=== PATIENT | male | born 1950 | race Caucasian/White ===

== ENCOUNTER → 2016-09-06 | Outpatient (CLI) | payer MEDICARE, OTHER ==
--- NOTE | 2016-09-06 13:19 | US ---
EXAM DESCRIPTION: US LOWER EXTREMITY VEINS LIMITED/UNILATERAL/FOLLOW UP CLINICAL HISTORY: 66 y/o M, LOCALIZED EDEMA COMPARISON: None. FINDINGS: Grayscale and color Doppler imaging of the left lower extremity was performed. Cornetist grayscale, spectral Doppler and color Doppler images of the venous structures within the left lower extremity were saved to the patient's medical record. Normal compressibility and color Doppler flow within the venous structures of the left lower extremity. IMPRESSION: Negative for DVT within the left lower extremity. Electronically signed by: Ambrosio Estevez MD 09/06/2016 13:16
== END ==
LOC: RAD 10:15
PROVIDERS: ATTEND Family Medicine
DX: R60.0 Localized edema (principal)

== ENCOUNTER → 2016-10-10 | Outpatient (CLI) | payer MEDICARE, OTHER | END | disposition home or self-care (01) | LOC: GMAH 14:43 | PROVIDERS: ATTEND Family Medicine | DX: D64.9 Anemia, unspecified (principal); E53.8 Deficiency of other specified B group vitamins ==

== ENCOUNTER 2016-11-16 15:13 | Outpatient (CLI) | payer MEDICARE, OTHER ==
[2016-11-17] MEDS ORDERED: ACETAMINOPHEN 325 MG TAB PO ONE (09:40)
[2016-11-17] MEDS ORDERED: SODIUM CHLORIDE 0.9% 250ML 250 ML IVS PRN (09:40)
[2016-11-17] MEDS ORDERED: diphenhydrAMINE HCL 50 MG/ML VIAL IV ONE (09:40)
[2016-11-17 18:56] VITALS: BP 126/67; TEMP 98.7; O2SAT 100
== END 2016-11-17 18:56 | disposition home or self-care (01) ==
LOC: TXRM 15:13
PROVIDERS: ATTEND Family Medicine
DX: D64.9 Anemia, unspecified (principal)
CPT/HCPCS: 36415; 86850; 86900; 86901; 86922; P9016

== ENCOUNTER 2016-12-04 16:17 | Outpatient (CLI) | payer MEDICARE, OTHER ==
[2016-12-05] MEDS ORDERED: SODIUM CHLORIDE 0.9% 500ML 500 ML IVS ONE (06:20)
[2016-12-05] MEDS: ACETAMINOPHEN 325 MG TAB PO ONE ×2 (08:50)
[2016-12-05] MEDS: diphenhydrAMINE HCL 50 MG/ML VIAL IV ONE ×2 (08:51)
[2016-12-05 13:53] VITALS: BP 133/74; TEMP 98.2; O2SAT 100
== END 2016-12-05 13:30 | disposition home or self-care (01) ==
LOC: AMB 16:17 → TXRM 12-05 13:30
PROVIDERS: ATTEND Family Medicine
PROC: 30233N1 Transfusion of Nonautologous Red Blood Cells into Peripheral Vein, Percutaneous Approach (ICD-10-PCS; principal; 2016-12-05 08:00)
DX: D64.9 Anemia, unspecified (principal)
CPT/HCPCS: 36415; 36430; 86850; 86900; 86901; 86922; G0463; J1200; J7040; P9016

== ENCOUNTER 2017-01-11 14:34 | Emergency (ER) | payer MEDICARE, OTHER ==
[2017-01-11 15:03] VITALS: TEMP 98; O2SAT 100
--- NOTE | 2017-01-11 16:09 | ED.PDOC ---
History of Present Illness - General Chief Complaint: General Stated Complaint: abnormal lab Time Seen by Provider: 01/11/17 16:02 - History of Present Illness Initial Comments: THIS PATIENT COMES FROM DR. ROWLEY OFFICE. EVIDENCTLY HIS HB WAS AROUND 6 TODAY. HE ALSO C/O A SEVERE CONNOR, FRONTAL AREA THAT HAS BEEN OCCURRING DAILY IN THE AM,S FOR SEVERAL WEEKS NOW. Allergies/Adverse Reactions: Allergies Levofloxacin [From Levaquin] Allergy (Verified 03/05/15 13:03) Home Medications: Ambulatory Orders Digoxin 0.25 mg PO DAILY@1200 08/05/14 Labetalol HCl 100 mg PO DAILY 08/05/14 Lisinopril 20 mg PO DAILY 08/05/14 Lorazepam 1 mg PO BID 08/05/14 Sucralfate Tab [Carafate Tab] 1 gm PO QID #100 tab 08/06/14 Albuterol Inhaler [Ventolin Hfa Inhaler] 1 puff INH Q3-4H PRN #1 inh 03/05/15 Amoxicillin & Pot Clavulanate [Augmentin] 875 mg PO BID #20 tab 03/05/15 Lansoprazole [Prevacid] 30 mg PO DAILY 03/05/15 Pantoprazole Tablet [Protonix] 40 mg PO DAILY 03/05/15 Warfarin Sodium 2 mg PO DAILY 03/05/15 predniSONE 40 mg PO DAILY #8 tab 03/05/15 Review of Systems - Review of Systems Constitutional: States: weakness EENTM: States: blurred vision Respiratory: States: no symptoms reported Cardiology: States: no symptoms reported Gastrointestinal/Abdominal: States: no symptoms reported Genitourinary: States: no symptoms reported Musculoskeletal: States: no symptoms reported Skin: States: no symptoms reported Neurological: States: headache. Denies: numbness Endocrine: States: no symptoms reported Hematologic/Lymphatic: States: no symptoms reported Past Medical History (General) - Patient Medical History Hx Seizures: No Hx Stroke: No Hx Dementia: No Hx Asthma: No Hx of COPD: No Hx Cardiac Disorders: Yes - Irreg heart beat, CAD, BYPASS 21 YRS AGO Hx Congestive Heart Failure: No Hx Pacemaker: No Hx Hypertension: Yes Hx Thyroid Disease: No Hx Diabetes: No Hx Gastroesophageal Reflux: No Hx Renal Disease: No Hx Cancer: No Hx of HIV: No Hx Hepatitis C: No Hx MRSA: No Surgical History: coronary bypass surgery, tonsillectomy - Vaccination History Hx Tetanus, Diphtheria Vaccination: Yes Hx Influenza Vaccination: Yes Hx Pneumococcal Vaccination: No - Social History Hx Tobacco Use: Yes Hx Alcohol Use: Yes - 6 pack per day Hx Substance Use: No Hx Substance Use Treatment: No Hx Depression: No Hx Physical Abuse: No Hx Emotional Abuse: No Hx Suspected Abuse: No - Female History Patient is a Female of Child Bearing Age (10 -59 yrs old): No Family Medical History - Family History Father Family History: Unknown Living Status: Age at (years of age): 76 Cause of : [place] Hx Cardiac Disease: Yes Mother Living Status: Cause of : [place] Hx Cardiac Disease: Yes Physical Exam - Physical Exam General Appearance: Alert, Anxious, Well Developed Eye Exam: bilateral normal Ears, Nose, Throat: hearing grossly normal, normal ENT inspection, normal pharynx Neck: non-tender, full range of motion, supple, normal inspection Respiratory: chest non-tender, lungs clear, normal breath sounds, no respiratory distress, no accessory muscle use Cardiovascular/Chest: normal peripheral pulses, other - IRREGULAR RATE - HAS AF Peripheral Pulses: radial,right: 2+, radial,left: 2+ Gastrointestinal/Abdominal: normal bowel sounds, non tender, soft, no organomegaly, no pulsatile mass Progress - Results/Orders Results/Orders: THE LAB IS BACK AND THE PATIENT'S HB IS 6.2. ATTEMPTED TO TYPE , CROSS AND TRANSFUSE THE PATIENT BUT THE PATIENT HAS A PROTEIN IN HIS BLOOD. I HAVE SPOKEN TO DR. PORTILLO FROM [facility] AND HE HAS ACCEPTED THE PATIENT FOR TRANSFER TO A HIGHER LEVEL OF CARE. Departure - Departure Clinical Impression: Upper GI bleeding Anemia Qualifiers: Iron deficiency anemia type: chronic blood loss Time of Disposition: 17:52 - DIFF. DX: ALCOHOLIC GASTRITIS Disposition: Transfer to Hospital Condition: Good Departure Forms: ED Discharge - Pt. Copy, Patient Portal Self Enrollment Referrals: Kei Solano MD [Primary Care Provider] - 1-2 Weeks Home Medications: Ambulatory Orders Digoxin 0.25 mg PO DAILY@1200 08/05/14 Labetalol HCl 100 mg PO DAILY 08/05/14 Lisinopril 20 mg PO DAILY 08/05/14 Lorazepam 1 mg PO BID 08/05/14 Sucralfate Tab [Carafate Tab] 1 gm PO QID #100 tab 08/06/14 Albuterol Inhaler [Ventolin Hfa Inhaler] 1 puff INH Q3-4H PRN #1 inh 03/05/15 Amoxicillin & Pot Clavulanate [Augmentin] 875 mg PO BID #20 tab 03/05/15 Lansoprazole [Prevacid] 30 mg PO DAILY 03/05/15 Pantoprazole Tablet [Protonix] 40 mg PO DAILY 03/05/15 Warfarin Sodium 2 mg PO DAILY 03/05/15 predniSONE 40 mg PO DAILY #8 tab 03/05/15
--- NOTE | 2017-01-11 16:14 | CT ---
EXAM DESCRIPTION: Head CLINICAL HISTORY: headaches COMPARISON: None available TECHNIQUE: Non contrast cranial CT This exam was performed according to our departmental dose-optimization program, which includes automated exposure control, adjustment of the mA and/or kV according to patient size and/or use of iterative reconstruction technique. FINDINGS: Ventricles and sulci are unremarkable. There is no hemorrhage or mass. There are no white matter abnormalities detected. The calvarium is unremarkable. Mild patchy sinus disease involving the right maxillary and mid right ethmoid sinus and minimally the left ethmoid sinus is noted without air-fluid level. The petrous ridges are normally pneumatized. IMPRESSION: 1. Mild patchy mucosal thickening right maxillary and both ethmoid sinuses consistent with mild sinusitis. 2. Normal CT of the head intracranially without hemorrhage or mass or abnormality. Electronically signed by: Domenico Ortiz MD 01/11/2017 4:14 PM CDT
[2017-01-11 18:18] VITALS: BP 138/67
== END 2017-01-11 18:16 | disposition short-term general hospital (02) ==
LOC: ER 14:34
DX: K92.2 Gastrointestinal hemorrhage, unspecified (principal); D50.0 Iron deficiency anemia secondary to blood loss (chronic); I49.9 Cardiac arrhythmia, unspecified; Z95.1 Presence of aortocoronary bypass graft; I10 Essential (primary) hypertension; Z87.891 Personal history of nicotine dependence; Z88.8 Allergy status to other drugs, medicaments and biological substances; Z79.899 Other long term (current) drug therapy; Z79.01 Long term (current) use of anticoagulants

== ENCOUNTER → 2017-08-30 | Outpatient (CLI) | payer MEDICARE, OTHER | LOC: GMAH 14:15 | PROVIDERS: ATTEND Family Medicine | DX: M10.9 Gout, unspecified (principal) ==

== ENCOUNTER → 2017-11-23 | Outpatient (CLI) | payer MEDICARE, OTHER | LOC: GT 07:32 | PROVIDERS: ATTEND Family Medicine | DX: I48.91 Unspecified atrial fibrillation (principal); D53.9 Nutritional anemia, unspecified | CPT/HCPCS: 36415; 80162; 85025; 85610; P9603 ==

== ENCOUNTER → 2017-11-30 | Outpatient (CLI) | payer MEDICARE, OTHER | LOC: GT 09:39 | PROVIDERS: ATTEND Family Medicine | DX: I48.91 Unspecified atrial fibrillation (principal); D53.9 Nutritional anemia, unspecified | CPT/HCPCS: 36415; 85610; P9603 ==

== ENCOUNTER 2017-12-06 11:07 | Emergency (ER) | payer MEDICARE, OTHER ==
[2017-12-06 11:35] VITALS: TEMP 97.1
--- NOTE | 2017-12-06 11:49 | ED.PDOC ---
History of Present Illness - General Chief Complaint: Neuro Symptoms/Deficits Stated Complaint: AMS,foot infection Time Seen by Provider: 12/06/17 11:43 Source: patient, family - History of Present Illness Initial Comments: HE LIVES AT THE [facility] FOR THE PAST TWO WEEKS. HE IS BROUGHT BY THE FOR ALTERED MENTAL STATUS. THE SAYS THAT SINCE HE GOT TO THE ED HE HAS PERKED UP AND IS MUCH MORE ALERT. HE WAS AT [facility] FOR AN ACUTE CRITICAL ISCHEMIC FOOT IN MID NOVEMBER AND A GANGRENOUS RIGHT THIRD TOE. I UNDERSTAND HE UNDERWENT A CT ANGIO WITH A RUN-OFF AND THEN WAS RE- VASCULARIZED BY ONE OF THE [employer]PA[employer] SUPERVISOR. HIS FOOT IS IMPROVED BUT THE RIGHT THIRD DIGIT HAS TURNED MORE GANGRENOUS. Timing/Duration: 24 hours Improving Factors: nothing Worsening Factors: nothing Associated Symptoms: denies symptoms Allergies/Adverse Reactions: Allergies Levofloxacin [From Levaquin] Allergy (Verified 03/05/15 13:03) Home Medications: Ambulatory Orders Digoxin 0.25 mg PO DAILY@1200 08/05/14 Lisinopril 20 mg PO DAILY 08/05/14 Lorazepam 1 mg PO BID 08/05/14 Pantoprazole Tablet [Protonix] 40 mg PO DAILY 03/05/15 Warfarin Sodium 2 mg PO DAILY 03/05/15 Aspirin [Aspirin Regimen Low Dose/] 81 mg PO DAILY 12/06/17 Atorvastatin Calcium [Lipitor] 80 mg PO BEDTIME 12/06/17 Chlorthalidone 12.5 mg PO DAILY 12/06/17 Folic Acid 1 mg PO DAILY 12/06/17 Metoprolol Tartrate 25 mg PO BID 12/06/17 Multiple Vitamins W/ Minerals [Multivitamin Adults] 1 tab PO DAILY 12/06/17 Nicotine Patch 21 mg [Habitrol Patch 21mg] 21 mg TOP DAILY 12/06/17 Sennosides [Senna] 8.6 mg PO BID 12/06/17 Thiamine HCl 100 mg PO DAILY 12/06/17 amLODIPine BESYLATE [Norvasc] 5 mg PO BEDTIME 12/06/17 Review of Systems - Review of Systems Constitutional: States: weakness EENTM: States: no symptoms reported Respiratory: States: no symptoms reported Cardiology: States: other - PERIPHERAL VASCULAR DISEASE Gastrointestinal/Abdominal: States: no symptoms reported Genitourinary: States: no symptoms reported Musculoskeletal: States: no symptoms reported Skin: States: other - GANGRENOUS RIGHT THIRD TOE Neurological: States: anxiety, depressed, emotional problems Endocrine: States: no symptoms reported Hematologic/Lymphatic: States: no symptoms reported All other Systems: Reviewed and Negative, No Change from Baseline Past Medical History (General) - Patient Medical History Hx Seizures: No Hx Stroke: No Hx Dementia: No Hx Asthma: No Hx of COPD: No Hx Cardiac Disorders: Yes - Atrial fib,CAD Hx Congestive Heart Failure: Yes Hx Pacemaker: No Hx Hypertension: Yes Hx Thyroid Disease: No Hx Diabetes: No Hx Gastroesophageal Reflux: No Hx Renal Disease: No Hx Cancer: No Hx of HIV: No Hx Hepatitis C: No Hx MRSA: No Surgical History: coronary bypass surgery, other - RECENT REVASCULAIZATION RIGHT LEG - Vaccination History Hx Tetanus, Diphtheria Vaccination: Yes Hx Influenza Vaccination: Yes Hx Pneumococcal Vaccination: Yes - Social History Hx Tobacco Use: Yes Hx Alcohol Use: Yes Hx Substance Use: No Hx Substance Use Treatment: No Hx Depression: No Hx Physical Abuse: No Hx Emotional Abuse: No Hx Suspected Abuse: No - Activities of Daily Living Residential/Assisted Living (if applicable):: [facility] Family Medical History - Family History Father Family History: Unknown Living Status: Age at (years of age): 76 Cause of : [place] Hx Cardiac Disease: Yes Mother Living Status: Cause of : [place] Hx Cardiac Disease: Yes Physical Exam - Physical Exam General Appearance: Alert, Well Developed, Well Groomed Eye Exam: bilateral normal Ears, Nose, Throat: hearing grossly normal, normal ENT inspection Neck: non-tender, full range of motion, supple, normal inspection Respiratory: chest non-tender, lungs clear, normal breath sounds, no respiratory distress, no accessory muscle use Cardiovascular/Chest: normal peripheral pulses, regular rate, rhythm, no edema, no gallop, no JVD, no murmur Peripheral Pulses: radial,right: 2+, radial,left: 2+, dorsalis pedis,right: 1+, dorsalis pedis,left: 2+ Gastrointestinal/Abdominal: normal bowel sounds, non tender, soft, no organomegaly, no pulsatile mass Rectal Exam: normal rectal tone, black stool, heme positive stool, other - NO MASSES Back Exam: normal inspection, no CVA tenderness, no vertebral tenderness Neurologic: no motor/sensory deficits, alert, normal mood/affect, oriented x 3 Skin Exam: normal color, warm/dry Lymphatic: no adenopathy Progress - Results/Orders Results/Orders: THE LAB IS REPORTED: H/H 7.08/26 FECAL OCCULT BLOOD: POSITIVE INR: 2.2 DIG LEVEL: 4.5 CMP: CREAT 1.9, BUN 35 UA $ UDS ARE STILL PENDING EKG: HR OF 65, QRS OF 142, QTC OF 453, AXES OF 60, IMPRESSION: ATRIAL FIBRILLATION, DIG EFFECT 1350: i have discussed the findings with the and on her recommendation i have also discussed the case with dr. shetty. AFTER OUR CONVERSATION IT WAS DECIDED THAT THE PATIENT WILL BE DISCHARGED HOME AND TO KEEP THE APPOINTMENT WITH DR. HOLMAN TODAY. DR. SHETTY WILL TAKE IT FROM THERE. Departure - Departure Clinical Impression: Gangrenous toe, Peripheral vascular disease Anemia Qualifiers: Anemia type: unspecified type Qualified Code(s): D64.9 - Anemia, unspecified Digitalis toxicity Qualifiers: Encounter type: initial encounter Injury intent: undetermined intent Qualified Code(s): T46.0X4A - Poisoning by cardiac-stimulant glycosides and drugs of similar action, undetermined, initial encounter Disposition: Discharge to Home or Self Care Departure Forms: ED Discharge - Pt. Copy, Patient Portal Self Enrollment Diet: resume usual diet Activity: increase activity as tolerated Referrals: Kei Shetty MD [Primary Care Provider] - 1-2 Weeks Home Medications: Ambulatory Orders Digoxin 0.25 mg PO DAILY@1200 08/05/14 Lisinopril 20 mg PO DAILY 08/05/14 Lorazepam 1 mg PO BID 08/05/14 Pantoprazole Tablet [Protonix] 40 mg PO DAILY 03/05/15 Warfarin Sodium 2 mg PO DAILY 03/05/15 Aspirin [Aspirin Regimen Low Dose/] 81 mg PO DAILY 12/06/17 Atorvastatin Calcium [Lipitor] 80 mg PO BEDTIME 12/06/17 Chlorthalidone 12.5 mg PO DAILY 12/06/17 Folic Acid 1 mg PO DAILY 12/06/17 Metoprolol Tartrate 25 mg PO BID 12/06/17 Multiple Vitamins W/ Minerals [Multivitamin Adults] 1 tab PO DAILY 12/06/17 Nicotine Patch 21 mg [Habitrol Patch 21mg] 21 mg TOP DAILY 12/06/17 Sennosides [Senna] 8.6 mg PO BID 12/06/17 Thiamine HCl 100 mg PO DAILY 12/06/17 amLODIPine BESYLATE [Norvasc] 5 mg PO BEDTIME 12/06/17 Decision To Admit - Decistion To Admit Decision to Admit Date: 12/06/17 Decision to Admit Time: 13:22 - NO BEDS AVAILABLE AT [facility].
[2017-12-06 13:39] VITALS: O2SAT 99
[2017-12-06 14:09] VITALS: BP 101/60
== END 2017-12-06 14:09 | disposition home or self-care (01) ==
LOC: ER 11:07
DX: I96 Gangrene, not elsewhere classified (principal); I73.9 Peripheral vascular disease, unspecified; T46.0X4A Poisoning by cardiac-stimulant glycosides and drugs of similar action, undetermined, initial encounter; D64.9 Anemia, unspecified; I48.91 Unspecified atrial fibrillation; I25.10 Atherosclerotic heart disease of native coronary artery without angina pectoris; I10 Essential (primary) hypertension; Z79.01 Long term (current) use of anticoagulants; Z79.82 Long term (current) use of aspirin; Z87.891 Personal history of nicotine dependence

== ENCOUNTER 2017-12-07 08:39 | Day surgery (SDC) | payer MEDICARE, OTHER ==
[2017-12-07] MEDS ORDERED: SODIUM CHLORIDE 0.9% 500ML 500 ML ONE (11:02)
[2017-12-07] MEDS ORDERED: diphenhydrAMINE HCL 50 MG/ML VIAL ONE (11:41)
[2017-12-07] MEDS ORDERED: ACETAMINOPHEN 325 MG TAB ONE (11:41)
[2017-12-07 15:56] VITALS: O2SAT 100
[2017-12-07 17:00] VITALS: BP 105/61; TEMP 97.9
== END 2017-12-07 17:00 ==
LOC: AMB 08:39
PROVIDERS: ATTEND Family Medicine
DX: D64.9 Anemia, unspecified (principal)
CPT/HCPCS: 36415; 36430; 80048; 80162; 83735; 86850; 86900; 86901; 86922; J1200; J7040; P9016

== ENCOUNTER 2017-12-09 11:41 | Inpatient (IN) | payer MEDICARE, OTHER ==
--- NOTE | 2017-12-09 12:17 | ED.PDOC ---
History of Present Illness - General Chief Complaint: Neuro Symptoms/Deficits Stated Complaint: altered mental status Time Seen by Provider: 12/09/17 12:00 Source: patient, EMS Exam Limitations: other - dementia - History of Present Illness Initial Comments: Patient presents from the intermediate. EMS reports that the intermediate said he was "altered". The patient is unable to give any history due to dementia. He recently was seen by Dr. Hager because he has a necrotic toe on his right foot. Patient is a diabetic. No other history is available. Timing/Duration: unsure Severity: moderate Improving Factors: nothing Worsening Factors: nothing Associated Symptoms: denies symptoms Allergies/Adverse Reactions: Allergies Levofloxacin [From Levaquin] Allergy (Verified 03/05/15 13:03) Home Medications: Ambulatory Orders Digoxin 0.25 mg PO DAILY@1200 08/05/14 Lisinopril 20 mg PO DAILY 08/05/14 Lorazepam 1 mg PO BID 08/05/14 Pantoprazole Tablet [Protonix] 40 mg PO DAILY 03/05/15 Warfarin Sodium 2 mg PO DAILY 03/05/15 Aspirin [Aspirin Regimen Low Dose/] 81 mg PO DAILY 12/06/17 Atorvastatin Calcium [Lipitor] 80 mg PO BEDTIME 12/06/17 Chlorthalidone 12.5 mg PO DAILY 12/06/17 Folic Acid 1 mg PO DAILY 12/06/17 Metoprolol Tartrate 25 mg PO BID 12/06/17 Multiple Vitamins W/ Minerals [Multivitamin Adults] 1 tab PO DAILY 12/06/17 Nicotine Patch 21 mg [Habitrol Patch 21mg] 21 mg TOP DAILY 12/06/17 Sennosides [Senna] 8.6 mg PO BID 12/06/17 Thiamine HCl 100 mg PO DAILY 12/06/17 amLODIPine BESYLATE [Norvasc] 5 mg PO BEDTIME 12/06/17 Review of Systems - Review of Systems Unable to Obtain Due To: dementia Past Medical History (General) - Patient Medical History Hx Seizures: No Hx Stroke: No Hx Dementia: No Hx Asthma: No Hx of COPD: No Hx Cardiac Disorders: Yes - Atrial fib,Ischemic heart disease Hx Congestive Heart Failure: Yes Hx Pacemaker: No Hx Hypertension: Yes Hx Thyroid Disease: No Hx Diabetes: No Hx Gastroesophageal Reflux: Yes Hx Renal Disease: No Hx Cancer: No Hx of HIV: No Hx Hepatitis C: No Hx MRSA: No - Vaccination History Hx Tetanus, Diphtheria Vaccination: Yes Hx Influenza Vaccination: Yes Hx Pneumococcal Vaccination: Yes - Social History Hx Tobacco Use: Yes Hx Alcohol Use: Yes Hx Substance Use: No Hx Substance Use Treatment: No Hx Depression: No Hx Physical Abuse: No Hx Emotional Abuse: No Hx Suspected Abuse: No - Activities of Daily Living [facility] Family Medical History - Family History Father Family History: Unknown Living Status: Age at (years of age): 76 Cause of : [place] Hx Cardiac Disease: Yes Mother Living Status: Cause of : [place] Hx Cardiac Disease: Yes Physical Exam - Physical Exam General Appearance: Alert Eye Exam: bilateral normal Ears, Nose, Throat: normal ENT inspection Neck: non-tender, full range of motion, supple Respiratory: chest non-tender, lungs clear, normal breath sounds Cardiovascular/Chest: normal peripheral pulses, regular rate, rhythm, no edema Gastrointestinal/Abdominal: normal bowel sounds, non tender, soft Back Exam: normal inspection, no CVA tenderness Extremity: normal range of motion, non-tender, normal inspection Neurologic: rn palliative care II-XII nml as tested, no motor/sensory deficits, alert, normal mood/affect, other - oriented to name and place but not year, patient has baseline dementia Skin Exam: normal color Lymphatic: no adenopathy Progress - Progress Progress: INR elvated. CK 1727 with Cr 2.86. UA negative. CT head negative. Patient was given NS one liter bolus x 2 then started on NS at 250 ml/hour. He had a stable mental baseline in the E.D. and was calm and cooperative. Admitted to the floor for rhabdomyolysis and RONDA. 12/09/17 15:57 Laboratory Tests 12/09/17 12/09/17 12/09/17 12:00 12:00 12:00 WBC 10.0 RBC 3.12 L D Hgb 8.8 L D Hct 26.1 L D MCV 83.5 MCH 28.2 MCHC 33.5 RDW 17.1 H Plt Count 276 MPV 7.6 Absolute Neuts (auto) 7.50 H Absolute Lymphs (auto) 1.30 Absolute Monos (auto) 1.20 H Absolute Eos (auto) 0.10 Absolute Basos (auto) 0.10 Neutrophils % 74.5 Lymphocytes % 12.5 L Monocytes % 11.5 H Eosinophils % 0.7 L Basophils % 0.8 PT INR PTT (SP) Sodium 133 L Potassium 4.1 Chloride 101 Carbon Dioxide 20 L Anion Gap 16.1 BUN 44 H Creatinine 2.86 H BUN/Creatinine Ratio 15.4 POC Glucose Random Glucose 66 L Serum Osmolality 275.8 Lactic Acid 1.7 Calcium 8.7 Magnesium 1.9 Total Bilirubin 0.5 AST 182 H D ALT 58 Alkaline Phosphatase 64 Creatine Kinase 1727 H* CK-MB (CK-2) 23.3 H* CK-MB (CK-2) % 1.35 Troponin I 0.05 B-Natriuretic Peptide Serum Total Protein 6.6 Albumin 3.4 Globulin 3.2 Albumin/Globulin Ratio 1.1 TSH 4.06 Thyroxine (T4) 7.42 Urine Color Urine Appearance Urine pH Ur Specific Adrian Urine Protein Urine Glucose (UA) Urine Ketones Urine Blood Urine Nitrite Urine Bilirubin Urine Urobilinogen Ur Leukocyte Esterase Urine RBC Urine WBC Ur Epithelial Cells Urine Bacteria Salicylates Acetaminophen < 10.0 L 12/09/17 12/09/17 12/09/17 12:03 12:10 13:48 WBC RBC Hgb Hct MCV MCH MCHC RDW Plt Count MPV Absolute Neuts (auto) Absolute Lymphs (auto) Absolute Monos (auto) Absolute Eos (auto) Absolute Basos (auto) Neutrophils % Lymphocytes % Monocytes % Eosinophils % Basophils % PT 116.6 H* INR 10.290 H* PTT (SP) 44.6 H Sodium Potassium Chloride Carbon Dioxide Anion Gap BUN Creatinine BUN/Creatinine Ratio POC Glucose 77 Random Glucose Serum Osmolality Lactic Acid Calcium Magnesium Total Bilirubin AST ALT Alkaline Phosphatase Creatine Kinase CK-MB (CK-2) CK-MB (CK-2) % Troponin I B-Natriuretic Peptide 298.0 H* Serum Total Protein Albumin Globulin Albumin/Globulin Ratio TSH Thyroxine (T4) Urine Color Urine Appearance Urine pH Ur Specific Adrian Urine Protein Urine Glucose (UA) Urine Ketones Urine Blood Urine Nitrite Urine Bilirubin Urine Urobilinogen Ur Leukocyte Esterase Urine RBC Urine WBC Ur Epithelial Cells Urine Bacteria Salicylates Acetaminophen 12/09/17 15:12 WBC RBC Hgb Hct MCV MCH MCHC RDW Plt Count MPV Absolute Neuts (auto) Absolute Lymphs (auto) Absolute Monos (auto) Absolute Eos (auto) Absolute Basos (auto) Neutrophils % Lymphocytes % Monocytes % Eosinophils % Basophils % PT INR PTT (SP) Sodium Potassium Chloride Carbon Dioxide Anion Gap BUN Creatinine BUN/Creatinine Ratio POC Glucose Random Glucose Serum Osmolality Lactic Acid Calcium Magnesium Total Bilirubin AST ALT Alkaline Phosphatase Creatine Kinase CK-MB (CK-2) CK-MB (CK-2) % Troponin I B-Natriuretic Peptide Serum Total Protein Albumin Globulin Albumin/Globulin Ratio TSH Thyroxine (T4) Urine Color Yellow Urine Appearance Clear Urine pH 5.5 Ur Specific Adrian 1.015 Urine Protein Negative Urine Glucose (UA) Negative Urine Ketones Negative Urine Blood Small H Urine Nitrite Negative Urine Bilirubin Negative Urine Urobilinogen 0.2 Ur Leukocyte Esterase Negative Urine RBC 3-5 H Urine WBC 0 Ur Epithelial Cells 0 Urine Bacteria 0 Salicylates Acetaminophen Departure - Departure Clinical Impression: Rhabdomyolysis, Acute renal insufficiency Disposition: Admit Patient Condition: Fair Departure Forms: ED Discharge - Pt. Copy, Patient Portal Self Enrollment Diet: other - as per hospitalist Activity: other - as per hospitalist Referrals: Kei Solano MD [Primary Care Provider] - 1-2 Weeks Home Medications: Ambulatory Orders Digoxin 0.25 mg PO DAILY@1200 08/05/14 Lisinopril 20 mg PO DAILY 08/05/14 Lorazepam 1 mg PO BID 08/05/14 Pantoprazole Tablet [Protonix] 40 mg PO DAILY 03/05/15 Warfarin Sodium 2 mg PO DAILY 03/05/15 Aspirin [Aspirin Regimen Low Dose/] 81 mg PO DAILY 12/06/17 Atorvastatin Calcium [Lipitor] 80 mg PO BEDTIME 12/06/17 Chlorthalidone 12.5 mg PO DAILY 12/06/17 Folic Acid 1 mg PO DAILY 12/06/17 Metoprolol Tartrate 25 mg PO BID 12/06/17 Multiple Vitamins W/ Minerals [Multivitamin Adults] 1 tab PO DAILY 12/06/17 Nicotine Patch 21 mg [Habitrol Patch 21mg] 21 mg TOP DAILY 12/06/17 Sennosides [Senna] 8.6 mg PO BID 12/06/17 Thiamine HCl 100 mg PO DAILY 12/06/17 amLODIPine BESYLATE [Norvasc] 5 mg PO BEDTIME 12/06/17
[2017-12-09] MEDS ORDERED: SODIUM CHLORIDE 0.9% 1000ML 1,000 ML IVS ONE (13:43)
--- NOTE | 2017-12-09 13:55 | CT ---
EXAM DESCRIPTION: Head CLINICAL HISTORY: altered mental status, coagulopathy COMPARISON: None Available TECHNIQUE: Contiguous axial CT images of the head were obtained. Coronal and sagittal reconstructions were created from the axial data. This exam was performed according to our departmental dose-optimization program, which includes automated exposure control, adjustment of the mA and/or kV according to patient size and/or use of iterative reconstruction technique. FINDINGS: There is a posterior neck nonspecific approximately 15 mm rounded well-defined soft tissue lesion. It is higher attenuation than fat. There is no evidence of acute mass, mass effect, midline shift or hemorrhage. The ventricles and extra-axial CSF spaces are unremarkable. The brain parenchyma appears normal for the patient's age. No acute abnormalities of the bones is seen. IMPRESSION: No acute intracranial abnormality. Electronically signed by: Ton Davis 12/09/2017 1:54 PM CDT
--- NOTE | 2017-12-09 16:16 | HP ---
SUPERVISING PHYSICIAN: Domenico Davenport MD CHIEF COMPLAINT: Altered mental status. HISTORY OF PRESENT ILLNESS: Mr. Choi is a 67-year-old, male patient that resides at [facility]. He was brought to the Emergency Room by EMS after the senior living reported he was in an altered state. Apparently, he was utilizing a fire extinguisher and threatening to attack people. The patient is a very poor historian. Most of the history is obtained from the previous medical records and Emergency Room notes. The patient was recently seen in the Emergency Room on 12/06/17 and was found to be severely anemic with a hemoglobin of 7.1. He was transfused 2 units of packed red blood cells and discharged home. It was also noted on labs at that discharge he had an elevated digoxin level at 4.5. Today, laboratory studies showed hemoglobin 8.8, hematocrit 26.1. Differential was within normal limits. The patient does have a history of severe peripheral vascular disease and apparently was seen in [place] by cardiology due to the fact that he had an ischemic food in mid-November with a gangrenous fourth toe. At that point, he apparently underwent a CT angiogram with runoff and was re-vascularized by the asp net c developer, but the third toe turned more gangrenous at which point he was seen Dr. Hager who is following him as an outpatient. On discussion with the patient, he seems to be pleasantly confused, but is confused as to location. In fact, he thinks he was just admitted recently within the last couple of days to [facility] with review of charts indicating he has been there well over 2 weeks. On initial admission, there was no note of any cellulitis of the foot. It was noted that his laboratories indicated he had elevated CPK of 1727 with normal potassium along with a creatinine of 2.86. Liver functions showed normal ALT, alkaline phosphatase and bilirubin and elevated AST at 182. Ammonia level was less than 6. He had a slightly elevated BNP of 298. Urinalysis showed a small amount of blood on dipstick with 3 to 5 on microscopic , otherwise within normal limits. He also has a history of atrial fibrillation for which he takes Coumadin chronically and INR today in the Emergency Room was supratherapeutic at 10.29 with INR on 12/06/17 at 2.27. Digoxin level was pending, it was not drawn in the Emergency Room. He had a CT of the head which per radiologic interpretation showed no acute intracranial abnormalities. Review of his previous laboratory studies indicates that his renal function was fairly normal with renal function showing a baseline creatinine of about 0.6. It is noted also that he had been started on Cleocin as well as Bactrim in the last week which could account for some of his renal function, but along with his elevated CPK and concerns for developing rhabdomyolysis and his acute confusional state, Dr. Rankin requested the patient be admitted for further treatment and evaluation to prevent further kidney injury. The patient was admitted in stable condition. PAST MEDICAL HISTORY : 1. Hypertension. 2. Anemia requiring recent transfusion on 12/06/17 with 2 units of packed red blood cells. 3. Atrial fibrillation with the patient on chronic Coumadin therapy. 4. Severe peripheral vascular disease with chronic ischemic changes to the right foot requiring revascularization in the recent month. 5. Gangrenous fourth toe of right foot due to ischemic changes from peripheral vascular disease. PAST SURGICAL HISTORY: 1. Bilateral inguinal hernias. 2. Left ankle fracture requiring orthopedic surgery. 3. Coronary artery bypass grafting x3. CURRENT MEDICATIONS: 1. Digoxin 0.125 mg daily. 2. Coumadin 4 mg, Sunday and Sunday. 3. Coumadin 2 mg, Sunday, Sunday, Sunday, , Sunday. 4. Bactrim DS 800/160 mg 1 tablet twice daily for 4 days. 5. Lipitor 80 mg at bedtime. 6. Senna 8.6 mg b.i.d. 7. Thiamine 100 mg daily. 8. Protonix 40 mg daily. 9. Multivitamin with minerals 1 tablet daily. 10. Metoprolol 25 mg b.i.d. 11. Lorazepam 1 mg b.i.d. 12. Nicotine patch 21 mg daily. 13. Lisinopril 20 mg daily. 14. Folic acid 1 mg daily. 15. Cleocin 300 mg q.6h. 16. Chlorthalidone 12.5 mg daily. 17. Aspirin 81 mg. ALLERGIES: NO KNOWN DRUG ALLERGIES. FAMILY HISTORY: Coronary artery disease. SOCIAL HISTORY: The patient lives at [facility]. He has just recently moved there in the last 2 weeks. He is retired. He used to work for [employer] in [place], [place]. He does have greater than 50 pack year history of smoking and currently smoked 1-1/2 packs or more a day. He does have a significant alcohol history, but apparently he has stopped drinking. He admits that he smokes marijuana anywhere from 3 to 4 times a week. REVIEW OF SYSTEMS: Difficult to obtain as the patient is confused. CONSTITUTIONAL: Denies any fevers, chills, or body aches. HEENT: Denies problems with hearing, vision, nasal congestion, earaches. RESPIRATORY: Denies shortness of breath, cough, wheezing. CARDIOVASCULAR: No reported chest pain. He does have history of atrial fibrillation and is on chronic Coumadin. GASTROINTESTINAL: Denies abdominal pain, blood in his stools, constipation, acute gastrointestinal bleeding, nausea or vomiting. GENITOURINARY: Denies dysuria. EXTREMITIES: Denies pedal edema. NEUROLOGIC: Denies ataxia, headaches, vision changes. He is aware that he is confused and not thinking clearly, but reports no other neurologic deficits. PHYSICAL EXAMINATION: VITAL SIGNS: Temperature on admission was 96.4. Pulse 69. Blood pressure 112/ 60. Respirations 18. Saturation 96% on nasal cannula at rest at 2 liters. Weight 69.9 kg. GENERAL: The patient is alert. He is very unkept. He appears to be dehydrated and somewhat malnourished. He is pleasantly confused and cooperative. HEENT: Tympanic membranes are partially occluded with cerumen. Oropharynx is pink with dry mucous membranes, cracked lips, no lesions. NECK: Supple, nontender with full range of motion. RESPIRATORY: Lungs clear to auscultation without any rhonchi, wheezes, or rales. CARDIOVASCULAR: Regular rate and rhythm without any appreciable murmurs, gallops, or rubs. ABDOMEN: Soft, nontender. Positive bowel sounds. EXTREMITIES: There is no cyanosis, clubbing or edema. NEUROLOGIC: Cranial nerves II-XII are grossly intact as tested. There are no discernible motor or sensory deficit. He was alert. Facial features are symmetrical. He is oriented to himself, but is confused currently as to place other than he knows he is in [place], thought he was in [place] and unsure of the year. LABORATORY: CBC showed white count 10,000, hemoglobin 8.8, hematocrit 26.1, RBC indices indicated normocytic/normochromic presentation with platelet count 276,000. Differential within normal limits. Coagulation studies showed elevated INR 10.2, PT 116.6, PTT 44.6. Chemistries showed a mild hyponatremia at 133 with sodium 4.1, cardiac low at 20, anion gap normal at 16. BUN 14, creatinine 2.86, glucose 66, lactic acid 1.7, calcium 8.7, magnesium 1.9, bilirubin low at 0.52, AST elevated at 182, ALT and alkaline phosphatase normal. CPK elevated at 1,727 with troponin 0.05. BNP 298. TSH normal as well as T4. Urinalysis showed a small amount of blood with 3 to 5 RBCs, otherwise within normal limits. Toxicology showed salicylates normal, acetaminophen level less than 10, alcohol level less than 5.4. Urine drug screen was positive for benzodiazepine which he does take lorazepam and positive for marijuana. Otherwise, all other substances were as negative tested. Ammonia level less than 6. Alcohol less than 5.4. Digoxin level 3.0, which is down from previous three days ago of 4.5. Followup hemoglobin hematocrit 6 hours post admission shows hemoglobin 7.7 and hematocrit 22.8. MICROBIOLOGY: No specimens were collected. RADIOLOGY: CT of the head per radiologic interpretation showed no acute intracranial abnormalities noted. ASSESSMENT: 1. Acute mental status change, possibly related to underlying dehydration and some underlying dementia that was exacerbated by current chronic illness and acute Digoxin toxicity. 2. Normocytic/normochromic anemia having recently received blood products within the last 3 days and no reported acute blood loss. 3. Elevated CPK levels with concern for developing rhabdomyolysis with elevated renal function, but normal potassium levels with no mention of falls with the patient on a statin agent as well as recently finished a round of Bactrim. 4. Acute renal injury with some prerenal azotemia from dehydration possibly exacerbated by recent administration of Bactrim with baseline creatinine being around 0.6 as well as concern for rhabdomyolysis with elevated CPK on admission. 5. Severe peripheral vascular disease with ischemic changes and gangrene to the fourth toe without evidence of cellulitis 6. Atrial fibrillation on chronic Coumadin therapy with a supratherapeutic Coumadin level. 7. Hypertension. 8. Chronic tobacco abuse, encouraged to stop smoking. 9. Illicit drug use with marijuana. 10. Elevated liver functions, possibly related to statin administration. 11. Digoxin toxicity with dig level of 3.0 which appears to be chronic over the last week with current levels showing to be less than previous levels of 4.5 done on 12/06/17 with the patient showing no acute cardiac symptoms requiring close telemetry monitoring. PLAN: The patient will be admitted today for ongoing treatment for concern for developing rhabdomyolysis. He was given a bolus of saline in the Emergency Department. This will be followed with continued fluids of normal saline at 100 with close monitoring of his renal function and CPK levels q.8h. I did visit with Dr. Hager with regards to his fourth toe on the right foot thats is gangrenous, which has been treated in the outpatient setting with Cleocin as well as recen course of Bactrim. The plan before admission was to at some point this week take the patient to outpatient surgery for amputation of the toe. Dr. Hager is planning to come by and see the patient and discuss future plans in regards the foot. In regards to his Coumadin level, this is supratherapeutic and we will hold his Coumadin at this time, but we will also hold off on giving him any vitamin K and recollect a PT level in 8 hours to further rule out that the specimen was collected too close to recent administration of his medications. In regards to his digoxin level which was previously toxic on Sunday, we will again repeat his level as it looks like he takes his digoxin at noon to further rule out any toxicity. We will plan to repeat his laboratories in the morning, monitor his hemoglobin an hematocrit and I have ordered occult blood to further rule out acute loss. We will anticipate his length of stay to be at least 2 to 3 days until his renal function shows improvement and his CPK levels drop and return to baseline status. In regards to his foot, there are no areas of cellulitis, but he has been on Bactrim which is currently stopped as well as we will continue with his Cleocin. In regards to elevated liver functions, we will hold his Lipitor which could possibly be resulting in some of his elevated CPK as well as the elevated liver enzymes. Since the patient is showing acute drop in his hemoglobin, currently we will transfuse 2 units of packed red blood cells. We will continue to watch his vital signs and telemetry closely given the level of digoxn, but currently is potassium levels are normal and he is asymptomatic. Until discharge, we will continue to monitor the patient closely and treat appropriately. #[id number] [facility]
[2017-12-09] MEDS ORDERED: ACETAMINOPHEN 325 MG TAB PO PRN (17:06)
[2017-12-09] MEDS ORDERED: SODIUM CHLORIDE 0.9% (FLUSH) 10 ML SYG IV PRN (17:06)
[2017-12-09] MEDS ORDERED: SODIUM CHLORIDE 0.9% 1000ML 1,000 ML IVS PRN (17:11)
[2017-12-09] MEDS ORDERED: SODIUM CHLORIDE 0.9% 1000ML 1,000 ML ONE (17:28)
[2017-12-09] MEDS ORDERED: IV SET AND CAP CHANGE INJ INJ SCH (17:30)
--- NOTE | 2017-12-09 17:36 | PCM.CORE ---
Physician DVT/VTE - Prophylaxis Currently: Patient already on anticoagulation therapy - warfrin - Nurse DVT Assessment & Total Each Risk Factor Represents 3 Points: Medical PT with Hx of CT, CHF, Severe infection/sepsis Each Risk Factor Represents 2 Points: Age 60-74 Each Risk Factor Represents 1 Point: Medical PT at Bed Rest, Hx of smoking past year DVT Assessment Score: 7 - 5 or more Very High Risk Treatments: Early Ambulation *, Sequential Compression Device Pharmacological: Warfarin daily
[2017-12-09] MEDS ORDERED: CLINDAMYCIN HCL CAP 150 MG CAP ONE (17:43)
[2017-12-09] MEDS ORDERED: CLINDAMYCIN HCL 300 MG PO SCH (17:45)
[2017-12-09] MEDS: CLINDAMYCIN HCL CAP 150 MG CAP PO SCH (17:48)
[2017-12-09] MEDS: LORazepam 1 MG TAB PO SCH (20:26)
[2017-12-09] MEDS: amLODIPine BESYLATE 5 MG TAB PO SCH (20:27)
[2017-12-09] MEDS: METOPROLOL TARTRATE 25 MG TAB PO SCH (20:27)
[2017-12-09] MEDS ORDERED: NON-FORMULARY MEDICATION 1 EA MIS (Atorvastatin Calcium [Lipitor] 80 MG) PO SCH (21:00)
[2017-12-09] MEDS ORDERED: ACETAMINOPHEN 325 MG TAB PO ONE (22:38)
[2017-12-09] MEDS ORDERED: SODIUM CHLORIDE 0.9% 500ML 500 ML IVS SCH (23:00)
[2017-12-09] MEDS ORDERED: DEX 5% W/NACL 0.45% 1000ML 1,000 ML IVS PRN (23:25)
[2017-12-09] MEDS ORDERED: SODIUM CHLORIDE 0.45% 1000ML 1,000 ML IVS PRN (23:28)
[2017-12-10] MEDS: CLINDAMYCIN HCL CAP 150 MG CAP PO SCH ×5 (00:55→23:51)
[2017-12-10] MEDS ORDERED: SODIUM CHLORIDE 0.45% 1000ML 1,000 ML IVS ONE (01:27)
[2017-12-10] MEDS: FOLIC ACID 1 MG TAB PO SCH (08:23)
[2017-12-10] MEDS: THIAMINE HCL 100 MG TAB PO SCH (08:23)
[2017-12-10] MEDS: LORazepam 1 MG TAB PO SCH ×2 (08:24→20:57)
[2017-12-10] MEDS ORDERED: PHYTONADIONE INJ 10 MG in SODIUM CHLORIDE 0.9% 50ML 50 ML IVPB ONE (08:28)
[2017-12-10] MEDS: CHLORTHALIDONE 25 MG TAB PO SCH (08:30)
[2017-12-10] MEDS: METOPROLOL TARTRATE 25 MG TAB PO SCH ×2 (08:31→17:30)
[2017-12-10] MEDS ORDERED: PANTOPRAZOLE SODIUM TAB 40 MG PO SCH (09:00)
[2017-12-10] MEDS ORDERED: ASPIRIN EC 81 MG TAB PO SCH (09:00)
[2017-12-10] MEDS ORDERED: DIGOXIN 0.125 MG TAB PO SCH (09:00)
[2017-12-10] MEDS ORDERED: PHYTONADIONE INJ 10 MG/ML AMP ONE (09:05)
[2017-12-10] MEDS ORDERED: SODIUM CHLORIDE 0.9% 50ML 50 ML ONE (09:05)
[2017-12-10] MEDS: MULTIPLE VITAMINS W/ MINERALS 1 EA TAB PO SCH (09:13)
[2017-12-10] MEDS: SENNOSIDES 8.6 MG TAB PO SCH ×3 (09:13→20:57)
[2017-12-10] MEDS: NICOTINE PATCH 21 MG TD SCH (09:13)
[2017-12-10] MEDS ORDERED: SODIUM CHLORIDE 0.9% 500ML 500 ML ONE (10:16)
[2017-12-10] MEDS ORDERED: SODIUM CHLORIDE 0.9% 500ML 500 ML IVS ONE ×2 (10:28→17:35)
[2017-12-10] MEDS: SODIUM CHLORIDE 0.9% 1000ML 1,000 ML IVS PRN (10:30)
--- NOTE | 2017-12-10 13:30 | PN ---
SUPERVISING PHYSICIAN: Jacob Bowser MD DATE: 12/10/17 SUBJECTIVE: The patient states he feels okay this morning. He is still a bit confused, but a lot more clear than he was yesterday per the nurses. He has no complaints of any pain at this time, no nausea or vomiting. OBJECTIVE: VITAL SIGNS: Blood pressure 131/75. Heart rate 71. Respiratory rate 18. Temperature 96.4. Oxygen saturation 96%. GENERAL: Mr. Choi is a 67-year-old male patient in no active distress currently. NEUROLOGIC: Alert, follows commands without any acute deficits. LUNGS: Clear to auscultation bilaterally. CARDIOVASCULAR: Regular rate and rhythm. Normal S1, S2. ABDOMEN: Soft. Positive bowel sounds. GENITOURINARY: Deferred. EXTREMITIES: Lower extremities with no significant edema. Pulses 2+. LABORATORY: White blood cell count 7.6, hemoglobin 7.9, hematocrit 23.3, platelet count 195. INR has gone up to 13.87 with PT 156.8. Chemistries show sodium 133, potassium 4.1, chloride 107, CO2 19, BUN 29, creatinine 1.25, glucose 75, calcium 8.5. CK has gone down to 872. ASSESSMENT: 1. Altered mental status, appears to be somewhat improved. 2. Anemia. 3. Rhabdomyolysis with acute kidney injury. 4. Chronic atrial fibrillation on Coumadin therapy, currently showing Coumadin toxicity. 5. Digoxin toxicity. 6. Hypertension. PLAN: Given his elevated INR, I am going to give some fresh frozen plasma as well as vitamin K. His hemoglobin actually has not dropped, but the blood is not available to give him either, so we will transfuse a unit of blood once the blood does arrive from the outlying facility. I am also discontinuing his digoxin. Other medications can be resumed at this time. I am going to change his IV fluids to normal saline from half normal saline given the fact that his sodium has dropped a bit. Creatinine is a little bit improved, but BUN is still elevated so I feel like he is still a little bit on the dehydrated side. #[id number] [facility]
[2017-12-10] MEDS ORDERED: diphenhydrAMINE HCL 50 MG/ML VIAL ONE (17:33)
[2017-12-10] MEDS ORDERED: diphenhydrAMINE HCL 50 MG/ML VIAL IV STA (17:37)
[2017-12-10] MEDS ORDERED: ACETAMINOPHEN 325 MG TAB PO ONE (17:38)
[2017-12-10] MEDS: amLODIPine BESYLATE 5 MG TAB PO SCH (20:57)
[2017-12-11] MEDS: SODIUM CHLORIDE 0.9% 1000ML 1,000 ML IVS PRN ×2 (03:11→15:45)
[2017-12-11] MEDS: CLINDAMYCIN HCL CAP 150 MG CAP PO SCH ×4 (05:53→23:50)
[2017-12-11] MEDS: PANTOPRAZOLE SODIUM TAB 40 MG PO SCH (06:05)
[2017-12-11] MEDS: METOPROLOL TARTRATE 25 MG TAB PO SCH ×2 (08:12→17:47)
[2017-12-11] MEDS: MULTIPLE VITAMINS W/ MINERALS 1 EA TAB PO SCH (09:15)
[2017-12-11] MEDS: CHLORTHALIDONE 25 MG TAB PO SCH (09:15)
[2017-12-11] MEDS: THIAMINE HCL 100 MG TAB PO SCH (09:15)
[2017-12-11] MEDS: FOLIC ACID 1 MG TAB PO SCH (09:15)
[2017-12-11] MEDS: SENNOSIDES 8.6 MG TAB PO SCH ×2 (09:16→20:47)
[2017-12-11] MEDS: LORazepam 1 MG TAB PO SCH ×2 (09:16→20:47)
[2017-12-11] MEDS: NICOTINE PATCH 21 MG TD SCH (09:16)
--- NOTE | 2017-12-11 10:06 | PN ---
SUPERVISING PHYSICIAN: Jacob Bowser MD DATE: 12/11/17 SUBJECTIVE: The patient feels better today. He has no complaints of shortness of breath or pain at this time. There were no significant overnight events. OBJECTIVE: VITAL SIGNS: Blood pressure 147/68. Heart rate 79. Respiratory rate 20. Temperature 98.9. Oxygen saturation 96%. GENERAL: Mr. Choi is a 67-year-old male patient in no active distress. NEUROLOGIC: The patient is still confused, but I feel like his probably at baseline by now. He is not combative at this time. LUNGS: Clear to auscultation bilaterally. CARDIOVASCULAR: Slightly irregular rate. Rhythm is controlled as far as speed. ABDOMEN: Soft. Positive bowel sounds. GENITOURINARY: Deferred. EXTREMITIES: Lower extremities with no edema. Pulses 2+. The right fourth toe is still necrotic. LABORATORY: Labs are reviewed and show a white count of 6.5, hemoglobin 8.2, hematocrit 23.9, platelet count 168. INR is now 1.18. Sodium 129, potassium 3.8, chloride 104, CO2 19, BUN 16, creatinine 0.86, glucose 91, calcium 8.1. Transaminases are a bit improved at AST 87, ALT 47. ASSESSMENT: 1. Altered mental status, improved. 2. Anemia, improved. 3. Rhabdomyolysis, no acute kidney injury. Acute kidney injury is improved. CK is pending. 4. Chronic atrial fibrillation on chronic Coumadin therapy with Coumadin toxicity which is improved. 5. Digoxin toxicity, improving. 6. Hypertension, controlled. 7. Right fourth toe necrosis. PLAN: INR is now completely normal. He was only given one FFP and one vitamin K, so I will recheck the levels tomorrow to ensure this is accurate. If so, we can slowly resume the warfarin, but this is going to be based on when Dr. Hager plans on doing his right fourth toe amputation. His hemoglobin is 8.2 and given the fact that he got a unit of blood plus IV fluids, this is probably pretty accurate. I am not going to transfuse the other unit of blood unless he has a hemoglobin drop tomorrow. I will continue to hold the digoxin as he still has high levels and, in fact, probably not resume the digoxin at the alf. I have spoken with Dr. Solano and he is thinking maybe we might not resume the warfarin either, but we will discuss that in more depth tomorrow. We will continue the IV fluids as the sodium is a little bit on the low side. BUN and creatinine are normal now, so we will likely just do another 24 hours of the saline and then discontinue tomorrow. #[id number] [facility]
[2017-12-11] MEDS ORDERED: HALOPERIDOL LACTATE INJ 5 MG/ML VIAL IM ONE ×3 (13:05→15:39)
[2017-12-11] MEDS ORDERED: diphenhydrAMINE HCL 50 MG/ML VIAL ONE (15:39)
[2017-12-11] MEDS ORDERED: diphenhydrAMINE HCL 50 MG/ML VIAL IV ONE (15:40)
[2017-12-11] MEDS: amLODIPine BESYLATE 5 MG TAB PO SCH (20:47)
[2017-12-12] MEDS: SODIUM CHLORIDE 0.9% 1000ML 1,000 ML IVS PRN (03:50)
[2017-12-12] MEDS: CLINDAMYCIN HCL CAP 150 MG CAP PO SCH ×2 (06:07→12:11)
[2017-12-12] MEDS: PANTOPRAZOLE SODIUM TAB 40 MG PO SCH (06:07)
[2017-12-12] MEDS: SENNOSIDES 8.6 MG TAB PO SCH (09:07)
[2017-12-12] MEDS: MULTIPLE VITAMINS W/ MINERALS 1 EA TAB PO SCH (09:07)
[2017-12-12] MEDS: FOLIC ACID 1 MG TAB PO SCH (09:07)
[2017-12-12] MEDS: METOPROLOL TARTRATE 25 MG TAB PO SCH (09:07)
[2017-12-12] MEDS: THIAMINE HCL 100 MG TAB PO SCH (09:07)
[2017-12-12] MEDS: CHLORTHALIDONE 25 MG TAB PO SCH (09:07)
[2017-12-12] MEDS: NICOTINE PATCH 21 MG TD SCH (09:08)
[2017-12-12] MEDS: LORazepam 1 MG TAB PO SCH (09:08)
[2017-12-12 10:43] VITALS: BP 127/60; TEMP 98.3; O2SAT 93
--- NOTE | 2017-12-12 11:13 | DS ---
SUPERVISING PHYSICIAN: Jacob Bowser MD ADMISSION DIAGNOSIS: 1. Altered mental status. 2. Anemia. 3. Elevated CPK levels concerning for rhabdomyolysis. 4. Acute kidney injury. 5. Severe peripheral vascular disease with right fourth toe gangrene. 6. Atrial fibrillation on chronic Coumadin and digoxin therapy. 7. Digoxin toxicity. 8. Coumadin coagulopathy. DISCHARGE DIAGNOSIS: 1. Altered mental status. 2. Anemia. 3. Elevated CPK levels concerning for rhabdomyolysis. 4. Acute kidney injury. 5. Severe peripheral vascular disease with right fourth toe gangrene. 6. Atrial fibrillation on chronic Coumadin and digoxin therapy. 7. Digoxin toxicity. 8. Coumadin coagulopathy. HOSPITAL COURSE: This is a 67-year-old male patient who is a resident at [facility] who was brought to the Emergency Room due to altered mental status. Apparently he had a fire extinguisher and was threatening to attack people with it. He was initially seen on Sunday and was found to have a hemoglobin of 7.1. He was given 2 units of packed red blood cells and discharged home. At that point, he had a digoxin level of 4.5. He came back to the Emergency Room on Sunday and was noted to have a hemoglobin of 8.8. Additional he had an elevated creatinine. His dig level was elevated at 3.0 on Sunday and his INR was initially 10.3. The next day, his INR was even more elevated at 13.8 and his digoxin level was 3.3. He was given 1 unit of fresh frozen plasma and 1 vitamin K. Additionally, his blood was transfused 1 unit based on hemoglobin of 7.9. His followup labs showed a normalization of INR along with an improved hemoglobin of 8.2. Also, his digoxin level fell. I put him on some IV fluids for his elevated BUN and creatinine. This eventually normalized as well. He had an episode of confusion which required Haldol and Benadryl, but for the most part he has been more oriented here than was described at the skilled nursing. On the day of discharge, the patient's INR is normal as well as his digoxin level is normal. Chemistries show a resolution of his acute kidney injury. I discussed with Dr. Bowser regarding the patient's continued anemia and he suggested to talk with his about how aggressive she wants to be with further workup regarding his obvious chronic GI bleeding. In speaking with her, she stated he had a full workup about a year ago in [place] and at that time they suggested that his bleeds were secondary to a capillary leak as the patient was on anticoagulation. There was no mass, there was no polyps or any diverticulitis or diverticulosis that was responsible for the bleed at that time. I spoke with Dr. Hager as well who intends to take the right fourth toe off. He is going to see the patient this afternoon and we will discharge at that time. He will come back tomorrow for the right fourth toe amputation and I believe that will be under local anesthesia. At this time, the patient is alert. He does have chronic dementia , so he is a little bit confused, but he is appropriate at this time. He will have a followup appointment in one week with Dr. Solano where he can recheck his labs. I am going to leave him off the digoxin and leave him off of the warfarin at this time. I have placed the discontinuation of his medicines on the discharge medication sheet. Diet will be as tolerated, NPO after midnight. Activity is as tolerated. #[id number] [facility]
== END 2017-12-12 15:58 | DRG 683 ==
LOC: ER 11:41 → MS 16:14
PROVIDERS: ADMIT Nurse Practitioner Family; ATTEND Nurse Practitioner
PROC: 30233N1 Transfusion of Nonautologous Red Blood Cells into Peripheral Vein, Percutaneous Approach (ICD-10-PCS; principal; 2017-12-07)
PROC: 30233K1 Transfusion of Nonautologous Frozen Plasma into Peripheral Vein, Percutaneous Approach (ICD-10-PCS; 2017-12-07)
PROC: 30233N1 Transfusion of Nonautologous Red Blood Cells into Peripheral Vein, Percutaneous Approach (ICD-10-PCS; 2017-12-10)
DX: N17.9 Acute kidney failure, unspecified (principal); M62.82 Rhabdomyolysis; I70.261 Atherosclerosis of native arteries of extremities with gangrene, right leg; K92.2 Gastrointestinal hemorrhage, unspecified; D64.9 Anemia, unspecified; I48.2 Chronic atrial fibrillation; R79.1 Abnormal coagulation profile; T46.0X5A Adverse effect of cardiac-stimulant glycosides and drugs of similar action, initial encounter; T45.515A Adverse effect of anticoagulants, initial encounter; F03.90 Unspecified dementia, unspecified severity, without behavioral disturbance, psychotic disturbance, mood disturbance, and anxiety; I10 Essential (primary) hypertension; Z95.1 Presence of aortocoronary bypass graft; E86.0 Dehydration; R41.82 Altered mental status, unspecified; F12.90 Cannabis use, unspecified, uncomplicated; I25.10 Atherosclerotic heart disease of native coronary artery without angina pectoris; F17.210 Nicotine dependence, cigarettes, uncomplicated; Y92.9 Unspecified place or not applicable; Z66 Do not resuscitate; Z79.01 Long term (current) use of anticoagulants; Z79.82 Long term (current) use of aspirin; Z79.899 Other long term (current) drug therapy

== ENCOUNTER 2017-12-13 06:15 | Day surgery (SDC) | payer MEDICARE, OTHER ==
[2017-12-13] MEDS ORDERED: LIDOCAINE 1% 10 ML VIAL INJ ONE (07:00)
[2017-12-13] MEDS ORDERED: PROPOFOL 200 MG/20 ML VIAL IV ONE (07:00)
[2017-12-13] MEDS ORDERED: SODIUM CHL 0.9% 100ML MINI-BAG 100 ML IVPB ONE (09:16)
[2017-12-13] MEDS ORDERED: LACTATED RINGERS 1,000 ML ONE (09:17)
[2017-12-13] MEDS ORDERED: ceFAZolin SODIUM 1 GM VIAL ONE (09:17)
[2017-12-13] MEDS ORDERED: LIDOCAINE 1% 50 ML VIAL INJ ONE (10:17)
--- NOTE | 2017-12-13 12:00 | OP ---
DATE OF PROCEDURE: 12/13/17 PREOPERATIVE DIAGNOSIS: 1. Gangrene, right fourth toe with peripheral vascular occlusive disease. POSTOPERATIVE DIAGNOSIS: 1. Gangrene, right fourth toe with peripheral vascular occlusive disease. PROCEDURE: 1. Amputation of right fourth toe. SURGEON: Efra Hager MD. ASSISTANT DISTRICT ATTORNEY: None. ANESTHESIA: Local infiltration of 1% lidocaine and IV sedation by Anesthesia. INDICATION: The patient is a 67-year-old [facility]pc patient who has severe peripheral vascular occlusive disease and has recently undergone a vascular procedure on his right leg. He has a dry gangrene on his fourth toe and an eschar on the lateral aspect of his third right toe. We have allowed significant time for demarcation. There is no obvious obvious cellulitis. He is brought to the Surgical Suite today for amputation, debridement of the third toe and indicated procedures. FINDINGS: There was no abscess cavity identified. The third toe lateral aspect was debrided very carefully to take the dry eschar off. The fourth toe was transected just proximal to the MP joint. PROCEDURE: The patient was brought to the Surgical Suite and placed in supine position. His right foot was prepped and draped in the usual sterile manner. At this point, surgical time-out was taken. IV sedation was performed. Sponges were then used to separate the third and fifth toes allowing access to the fourth toe. Local infiltration of anesthesia was obtained with 1% lidocaine. The skin was incised just proximal to the line of demarcation. A small amount of bleeding was obtained. Dissection was carried circumferentially down until the tendons were identified and these were transected sharply. The bone was identified and cleared bluntly and then transected at the joint. The specimen was removed. When this was done, a rongeur was used to remove the joint capsule on the proximal side and the bone just proximal to it. When this was done, the wound was irrigated copiously with saline. The effluent was noted to be clear. There was a small amount of bleeding. The third toe eschar was then debrided sharply without difficulty. Moist, dilute Betadine soaked sponge was introduced into the defect loosely. It was then covered with a dry cotton gauze and wrapped. The patient tolerated the procedure well. Estimated blood loss was less than 25 mL. All sponge, needle and instrument counts were correct. #[id number] [facility]
[2017-12-13 12:12] VITALS: BP 118/63; TEMP 97.9; O2SAT 100
== END 2017-12-13 11:50 | disposition home or self-care (01) ==
LOC: AMB 06:15
PROVIDERS: ATTEND Surgery
DX: I96 Gangrene, not elsewhere classified (principal); I82.90 Acute embolism and thrombosis of unspecified vein; I25.10 Atherosclerotic heart disease of native coronary artery without angina pectoris; K21.9 Gastro-esophageal reflux disease without esophagitis; M62.82 Rhabdomyolysis; I48.2 Chronic atrial fibrillation; I12.9 Hypertensive chronic kidney disease with stage 1 through stage 4 chronic kidney disease, or unspecified chronic kidney disease; N18.9 Chronic kidney disease, unspecified; D64.9 Anemia, unspecified; F17.210 Nicotine dependence, cigarettes, uncomplicated; Z95.1 Presence of aortocoronary bypass graft; Z79.01 Long term (current) use of anticoagulants; Z79.82 Long term (current) use of aspirin; Z79.899 Other long term (current) drug therapy
CPT/HCPCS: 01480; 28820; 88305; J0690; J3490; J7050; J7120

== ENCOUNTER → 2017-12-24 | Outpatient (CLI) | payer MEDICARE, OTHER | LOC: LAB.NP 08:17 | PROVIDERS: ATTEND Family Medicine | DX: I48.91 Unspecified atrial fibrillation (principal); D53.9 Nutritional anemia, unspecified | CPT/HCPCS: 36415; 80162; 85610; P9603 ==

== ENCOUNTER 2018-01-01 12:22 | Emergency (ER) | payer MEDICARE, OTHER ==
--- NOTE | 2018-01-01 12:37 | ED.PDOC ---
History of Present Illness - General Chief Complaint: General Stated Complaint: Altered mental status, pale in color Time Seen by Provider: 01/01/18 12:30 Source: patient Exam Limitations: no limitations - History of Present Illness Initial Comments: Omari Meehan 76 y/o male brought by half-way after he was found to be confused talking inappropriately and was found to be pale .Personnel at [facility] called up md's office adveised to be evaluated at er.Has hx of hbp,cad.Has recent surgery -amputation -to right foot for PVD.On his arrival here he was not confused knows his where about ;birthday age,address.found to be cooperative , calm ,speech fluent.Has out of Hospital -DNR. Timing/Duration: 1-3 hours Severity: moderate Improving Factors: nothing Worsening Factors: nothing Associated Symptoms: other - see hpi Allergies/Adverse Reactions: Allergies Levofloxacin [From Levaquin] Allergy (Verified 12/09/17 17:04) Home Medications: Ambulatory Orders Lisinopril 20 mg PO DAILY 08/05/14 Lorazepam 1 mg PO BID 08/05/14 Pantoprazole Tablet [Protonix] 40 mg PO DAILY 03/05/15 Aspirin [Aspirin Regimen Low Dose/] 81 mg PO DAILY 12/06/17 Atorvastatin Calcium [Lipitor] 80 mg PO BEDTIME 12/06/17 Chlorthalidone 12.5 mg PO DAILY 12/06/17 Folic Acid 1 mg PO DAILY 12/06/17 Metoprolol Tartrate 25 mg PO BID 12/06/17 Multiple Vitamins W/ Minerals [Multivitamin Adults] 1 tab PO DAILY 12/06/17 Sennosides [Senna] 8.6 mg PO BID 12/06/17 Thiamine HCl 100 mg PO DAILY 12/06/17 amLODIPine BESYLATE [Norvasc] 5 mg PO BEDTIME 12/06/17 Clindamycin HCl [Cleocin] 300 mg PO Q6H 12/09/17 Nicotine Patch 21 mg [Habitrol Patch 21mg] 21 mg TD DAILY 12/09/17 Review of Systems - Review of Systems Constitutional: States: no symptoms reported EENTM: States: no symptoms reported Respiratory: States: no symptoms reported Cardiology: States: no symptoms reported Gastrointestinal/Abdominal: States: see HPI Genitourinary: States: no symptoms reported Neurological: States: see HPI Endocrine: States: no symptoms reported Past Medical History (General) - Patient Medical History Hx Seizures: No Hx Stroke: No Hx Dementia: No Hx Asthma: No Hx of COPD: No Hx Cardiac Disorders: Yes - Atrial fib,Ischemic heart disease Hx Congestive Heart Failure: No Hx Pacemaker: No Hx Hypertension: Yes Hx Thyroid Disease: No Hx Diabetes: No Hx Gastroesophageal Reflux: Yes Hx Renal Disease: No Hx Cancer: No Hx of HIV: No Hx Hepatitis C: No Hx MRSA: No Hx Other PMH: Yes - gout Surgical History: coronary bypass surgery, tonsillectomy, other - hernia repair ,colonoscopies,egd - Vaccination History Hx Tetanus, Diphtheria Vaccination: Yes Hx Influenza Vaccination: Yes Hx Pneumococcal Vaccination: Yes - Social History Hx Tobacco Use: Yes Hx Alcohol Use: No Hx Substance Use: No Hx Substance Use Treatment: No Hx Depression: No Hx Physical Abuse: No Hx Emotional Abuse: No Hx Suspected Abuse: No Family Medical History - Family History Father Family History: Unknown Living Status: Age at (years of age): 76 Cause of : CA Hx Cardiac Disease: Yes Hx Family Cancer: Yes - colon-mom Mother Living Status: Cause of : CA Hx Cardiac Disease: Yes Physical Exam - Physical Exam General Appearance: Alert, Comfortable, No apparent distress Eye Exam: bilateral normal, bilateral other - pale palpebral conjunctivae Ears, Nose, Throat: hearing grossly normal, normal ENT inspection, normal pharynx Neck: non-tender, full range of motion, supple Respiratory: lungs clear, normal breath sounds, no respiratory distress Cardiovascular/Chest: normal peripheral pulses, regular rate, rhythm, no murmur Peripheral Pulses: radial,right: 2+, radial,left: 2+ Gastrointestinal/Abdominal: normal bowel sounds, non tender, soft, no organomegaly Rectal Exam: normal rectal tone, black stool Back Exam: no CVA tenderness, no vertebral tenderness Extremity: no pedal edema, no calf tenderness, other - recent toe amputation dressing change recent right 4th toe Neurologic: no motor/sensory deficits, alert, normal mood/affect, oriented x 3 Skin Exam: normal color, warm/dry Lymphatic: no adenopathy Progress - Progress Progress: 01/01/18 12:58 Vital Signs - 8 hr 01/01/18 12:29 Temperature 99.1 F Pulse Rate [ 88 Apical] Respiratory 20 Rate Blood Pressure 126/61 [Left Arm] O2 Sat by Pulse 100 Oximetry - Results/Orders Results/Orders: 01/01/18 12:49 IV Care:Saline Lock per Protoc QSHIFT 01/01/18 13:00 EKG STAT 01/01/18 13:11 PACKED CELLS,LR Stat TYPE AND SCREEN Stat 01/01/18 13:32 Transfuse Blood Products .PRN 01/01/18 14:39 URINALYSIS Stat Laboratory Results - last 24 hr 01/01/18 01/01/18 01/01/18 12:57 12:58 12:58 WBC 6.5 RBC 1.74 L Hgb 4.8 L* Hct 14.4 L MCV 82.6 MCH 27.5 MCHC 33.6 RDW 17.3 H Plt Count 313 MPV 6.2 L Absolute Neuts (auto) 5.00 Absolute Lymphs (auto) 0.50 L Absolute Monos (auto) 0.90 H Absolute Eos (auto) 0.00 Absolute Basos (auto) 0.00 Neutrophils % 77.0 Lymphocytes % 7.4 L Monocytes % 14.5 H Eosinophils % 0.5 L Basophils % 0.6 PT 13.6 H INR 1.170 PTT (SP) 29.4 Sodium 126 L Potassium 4.0 Chloride 96 L Carbon Dioxide 22 Anion Gap 12.0 BUN 12 Creatinine 0.57 L BUN/Creatinine Ratio 21.1 H Random Glucose 101 Serum Osmolality 253.3 L* Lactic Acid 1.2 Calcium 8.5 Magnesium 1.8 Total Bilirubin 0.7 Direct Bilirubin 0.1 Indirect Bilirubin 0.6 AST 18 ALT 17 Alkaline Phosphatase 95 Creatine Kinase 48 CK-MB (CK-2) 4.7 H* CK-MB (CK-2) % Not Reportable Troponin I 0.02 Serum Total Protein 6.5 Albumin 2.9 L Stool Occult Blood Positive Crossmatch 01/01/18 13:11 WBC RBC Hgb Hct MCV MCH MCHC RDW Plt Count MPV Absolute Neuts (auto) Absolute Lymphs (auto) Absolute Monos (auto) Absolute Eos (auto) Absolute Basos (auto) Neutrophils % Lymphocytes % Monocytes % Eosinophils % Basophils % PT INR PTT (SP) Sodium Potassium Chloride Carbon Dioxide Anion Gap BUN Creatinine BUN/Creatinine Ratio Random Glucose Serum Osmolality Lactic Acid Calcium Magnesium Total Bilirubin Direct Bilirubin Indirect Bilirubin AST ALT Alkaline Phosphatase Creatine Kinase CK-MB (CK-2) CK-MB (CK-2) % Troponin I Serum Total Protein Albumin Stool Occult Blood Crossmatch See Detail - EKG/XRAY/CT EKG: Atrial, Fibrillation, RBBB - incomplete Comments: HR-92 XRAY: chest - cardiomegaly,mild chf Departure - Departure Clinical Impression: Altered awareness, transient Anemia Qualifiers: Anemia type: iron deficiency Iron deficiency anemia type: chronic blood loss Qualified Code(s): D50.0 - Iron deficiency anemia secondary to blood loss ( chronic) Gastrointestinal bleeding Qualifiers: GI bleed type/associated pathology: unspecified gastrointestinal hemorrhage type Qualified Code(s): K92.2 - Gastrointestinal hemorrhage, unspecified Time of Disposition: 14:52 Disposition: Transfer to Hospital Condition: Fair Departure Forms: Patient Portal Self Enrollment Referrals: Kei Solano MD [Primary Care Provider] - 1-2 Weeks Home Medications: Ambulatory Orders Lisinopril 20 mg PO DAILY 08/05/14 Lorazepam 1 mg PO BID 08/05/14 Pantoprazole Tablet [Protonix] 40 mg PO DAILY 03/05/15 Aspirin [Aspirin Regimen Low Dose/] 81 mg PO DAILY 12/06/17 Atorvastatin Calcium [Lipitor] 80 mg PO BEDTIME 12/06/17 Chlorthalidone 12.5 mg PO DAILY 12/06/17 Folic Acid 1 mg PO DAILY 12/06/17 Metoprolol Tartrate 25 mg PO BID 12/06/17 Multiple Vitamins W/ Minerals [Multivitamin Adults] 1 tab PO DAILY 12/06/17 Sennosides [Senna] 8.6 mg PO BID 12/06/17 Thiamine HCl 100 mg PO DAILY 12/06/17 amLODIPine BESYLATE [Norvasc] 5 mg PO BEDTIME 12/06/17 Clindamycin HCl [Cleocin] 300 mg PO Q6H 12/09/17 Nicotine Patch 21 mg [Habitrol Patch 21mg] 21 mg TD DAILY 12/09/17 Transfer to Outside Facility - Transfer Information Accepting Provider:: D/W Dr.Zardain-Er Negro,Dr. Valentin -Hospitalist Accepting Facility: [facility] Reason for Transfer: required specialist not available - D/W Dr. Collins- [employer]
[2018-01-01] MEDS ORDERED: PANTOPRAZOLE INJECTION 80 MG in SODIUM CHLORIDE 0.9% 100ML 80 ML IVPB ONE (12:49)
[2018-01-01] MEDS ORDERED: PANTOPRAZOLE SODIUM IV 40 MG VIAL ONE (13:01)
[2018-01-01] MEDS ORDERED: SODIUM CHLORIDE 0.9% 100ML 100 ML IVPB ONE (13:01)
--- NOTE | 2018-01-01 13:36 | RAD ---
EXAM DESCRIPTION: Chest,1 View CLINICAL HISTORY: 67 years Male, ams COMPARISON: 03/05/2015 IMPRESSION: The heart is enlarged, with central pulmonary vascular congestion. Median sternotomy wires and changes of prior cardiac surgery. Atherosclerosis in the thoracic aorta. The lungs are hyperexpanded. Bilateral perihilar interstitial thickening. This may be secondary to atelectasis, scarring, mild CHF with interstitial edema, or an atypical infectious/inflammatory process. There is no confluent airspace consolidation, pleural effusion, or pneumothorax. No acute osseous abnormality. Electronically signed by: Jonatahn Avendano MD 01/01/2018 1:34 PM CDT
--- NOTE | 2018-01-01 13:47 | RAD ---
EXAM DESCRIPTION: Abdomen 1 View CLINICAL HISTORY: 67 years Male, pain COMPARISON: None. FINDINGS: Two AP views of the abdomen were obtained. The bowel gas pattern is nonobstructive. Postoperative changes are noted in the pelvis. Vascular calcifications are present. There are degenerative changes in the lumbar spine at several levels including mild levoscoliosis. Degenerative changes are also noted in both hips. IMPRESSION: Postoperative and degenerative changes, but no obstruction or other acute intra-abdominal abnormality. Vascular calcifications. Electronically signed by: Leonel Peterson MD 01/01/2018 1:46 PM CDT
[2018-01-01 16:14] VITALS: BP 121/50; TEMP 99.6; O2SAT 97
== END 2018-01-01 16:00 | disposition short-term general hospital (02) ==
LOC: ER 12:22
DX: R40.4 Transient alteration of awareness (principal); K92.2 Gastrointestinal hemorrhage, unspecified; D50.0 Iron deficiency anemia secondary to blood loss (chronic); I48.91 Unspecified atrial fibrillation; I10 Essential (primary) hypertension; K21.9 Gastro-esophageal reflux disease without esophagitis; M10.9 Gout, unspecified; I25.9 Chronic ischemic heart disease, unspecified; I45.10 Unspecified right bundle-branch block; Z79.82 Long term (current) use of aspirin
CPT/HCPCS: 36415; 71045; 74018; 80048; 80076; 81001; 82270; 82550; 82553; 83605; 84484; 85025; 85610; 85730; 93005; J7050

== ENCOUNTER 2018-05-16 12:42 | Emergency (ER) | payer MEDICARE, OTHER ==
[2018-05-16] MEDS ORDERED: FUROSEMIDE 40 MG TAB PO ONE (13:02)
--- NOTE | 2018-05-16 13:04 | ED.PDOC ---
History of Present Illness - General Chief Complaint: Cardiovascular Problem Stated Complaint: edema to left lower extremity Time Seen by Provider: 05/16/18 13:02 Source: patient Exam Limitations: no limitations - History of Present Illness Initial Comments: the patient is a 67-year-old male presenting to the emergency room with his secondary to some mild swelling to his left lower extremity as well as some very mild erythema at his BKA repair site. No fevers. No body aches. No falls. 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 No lesions between the toes on the left foot. Edema is 1+ to 2+ on the left foot. He does have a history of some heart issues as well as some mild chronic renal insufficiency. He has been feeling fine otherwise.he does additionally take Norvasc daily. Timing/Duration: 24 hours Severity: mild Improving Factors: nothing Worsening Factors: nothing Associated Symptoms: denies symptoms Allergies/Adverse Reactions: Allergies Levofloxacin [From Levaquin] Allergy (Verified 12/09/17 17:04) Home Medications: Ambulatory Orders Lisinopril 20 mg PO DAILY 08/05/14 Lorazepam 1 mg PO BID 08/05/14 Pantoprazole Tablet [Protonix] 40 mg PO DAILY 03/05/15 Aspirin [Aspirin Regimen Low Dose/] 81 mg PO DAILY 12/06/17 Atorvastatin Calcium [Lipitor] 80 mg PO BEDTIME 12/06/17 Chlorthalidone 12.5 mg PO DAILY 12/06/17 Folic Acid 1 mg PO DAILY 12/06/17 Metoprolol Tartrate 25 mg PO BID 12/06/17 Multiple Vitamins W/ Minerals [Multivitamin Adults] 1 tab PO DAILY 12/06/17 Sennosides [Senna] 8.6 mg PO BID 12/06/17 Thiamine HCl 100 mg PO DAILY 12/06/17 amLODIPine BESYLATE [Norvasc] 5 mg PO BEDTIME 12/06/17 Clindamycin HCl [Cleocin] 300 mg PO Q6H 12/09/17 Nicotine Patch 21 mg [Habitrol Patch 21mg] 21 mg TD DAILY 12/09/17 Furosemide [Lasix] 40 mg PO DAILY #14 tab 05/16/18 Review of Systems - Review of Systems Constitutional: States: no symptoms reported EENTM: States: no symptoms reported Respiratory: States: no symptoms reported Cardiology: States: no symptoms reported Gastrointestinal/Abdominal: States: no symptoms reported Genitourinary: States: no symptoms reported Musculoskeletal: States: no symptoms reported Skin: States: see HPI Neurological: States: anxiety Endocrine: States: no symptoms reported Hematologic/Lymphatic: States: no symptoms reported All other Systems: No Change from Baseline Past Medical History (General) - Patient Medical History Hx Seizures: No Hx Stroke: No Hx Dementia: No Hx Asthma: No Hx of COPD: No Hx Cardiac Disorders: Yes - Atrial fib,Ischemic heart disease Hx Congestive Heart Failure: No Hx Pacemaker: No Hx Hypertension: Yes Hx Thyroid Disease: No Hx Diabetes: No Hx Gastroesophageal Reflux: Yes Hx Renal Disease: No Hx Cancer: No Hx of HIV: No Hx Hepatitis C: No Hx MRSA: No - Vaccination History Hx Tetanus, Diphtheria Vaccination: Yes Hx Influenza Vaccination: Yes Hx Pneumococcal Vaccination: Yes - Social History Hx Tobacco Use: Yes Hx Alcohol Use: No Hx Substance Use: No Hx Substance Use Treatment: No Hx Depression: No Hx Physical Abuse: No Hx Emotional Abuse: No Hx Suspected Abuse: No Family Medical History - Family History Father Family History: Unknown Living Status: Age at (years of age): 76 Cause of : AR Hx Cardiac Disease: Yes Hx Family Cancer: Yes - colon-mom Mother Living Status: Cause of : AR Hx Cardiac Disease: Yes Physical Exam - Physical Exam General Appearance: Alert, Comfortable, No apparent distress Eye Exam: bilateral normal Ears, Nose, Throat: normal ENT inspection, normal pharynx Neck: full range of motion, supple Respiratory: lungs clear, normal breath sounds, no respiratory distress, no accessory muscle use Cardiovascular/Chest: other - regular rate with occasional irregular beats Peripheral Pulses: radial,right: 2+, radial,left: 2+, dorsalis pedis,left: 1+, posterior tibialis,left: 1+ Gastrointestinal/Abdominal: non tender, soft Rectal Exam: deferred Back Exam: normal inspection, no CVA tenderness Extremity: normal range of motion, non-tender, normal capillary refill - on the left, pedal edema - on the left Neurologic: chief controller station II-XII nml as tested, alert, normal mood/affect, oriented x 3 Skin Exam: other - there is 1+ to 2+ edema to left foot very mild diffuse erythema but no increased pain or increased heat. There is no evidence of any localized wound. No evidence of any inflammation of the toes. There is very mild erythema to the anterior border of the lateral most aspect of the right BKA site. This has apparently been decreasing according to the patient as the wound is healing. Progress - Progress Progress: 05/16/18 13:06 the patient's a 67-year-old male presenting to the emergency room secondary to concern over mild edema to his left lower extremity and very mild persistent erythema to the right BKA site. I see no evidence of any overt infection at this time. Erythema has been traced out on the right BKA site. If the redness is worsening over the next couple of days then they are to return for reevaluation and a change in treatment. For the edema to the left lower extremity the patient is going to receive a dose of oral Lasix here and he is going to be written for Lasix daily for the next 3 days only as an outpatient. After that I want him to follow-up with his primary care doctor to see if any additional diuretic will be required, and to reevaluate both sites. He is to return here for any significant worsening. ER warnings were given. I see no evidence of infection at this time. Departure - Departure Clinical Impression: Peripheral edema Disposition: Discharge to Home or Self Care Condition: Fair Departure Forms: ED Discharge - Pt. Copy, Patient Portal Self Enrollment Instructions: Dependent Edema (DC) Diet: diabetic diet, low salt diet Activity: increase activity as tolerated Referrals: Kei Solano MD [Primary Care Provider] - 1-5 Days Prescriptions: Furosemide [Lasix] 40 mg PO DAILY #14 tab Home Medications: Ambulatory Orders Lisinopril 20 mg PO DAILY 08/05/14 Lorazepam 1 mg PO BID 08/05/14 Pantoprazole Tablet [Protonix] 40 mg PO DAILY 03/05/15 Aspirin [Aspirin Regimen Low Dose/] 81 mg PO DAILY 12/06/17 Atorvastatin Calcium [Lipitor] 80 mg PO BEDTIME 12/06/17 Chlorthalidone 12.5 mg PO DAILY 12/06/17 Folic Acid 1 mg PO DAILY 12/06/17 Metoprolol Tartrate 25 mg PO BID 12/06/17 Multiple Vitamins W/ Minerals [Multivitamin Adults] 1 tab PO DAILY 12/06/17 Sennosides [Senna] 8.6 mg PO BID 12/06/17 Thiamine HCl 100 mg PO DAILY 12/06/17 amLODIPine BESYLATE [Norvasc] 5 mg PO BEDTIME 12/06/17 Clindamycin HCl [Cleocin] 300 mg PO Q6H 12/09/17 Nicotine Patch 21 mg [Habitrol Patch 21mg] 21 mg TD DAILY 12/09/17 Furosemide [Lasix] 40 mg PO DAILY #14 tab 05/16/18 Additional Instructions: the patient's a 67-year-old male presenting to the emergency room secondary to concern over mild edema to his left lower extremity and very mild persistent erythema to the right BKA site. I see no evidence of any overt infection at this time. Erythema has been traced out on the right BKA site. If the redness is worsening over the next couple of days then they are to return for reevaluation and a change in treatment. For the edema to the left lower extremity the patient is going to receive a dose of oral Lasix here and he is going to be written for Lasix daily for the next 3 days only as an outpatient. After that I want him to follow-up with his primary care doctor to see if any additional diuretic will be required, and to reevaluate both sites. He is to return here for any significant worsening. ER warnings were given. I see no evidence of infection at this time.
[2018-05-16 13:07] VITALS: TEMP 97.4
[2018-05-16 14:08] VITALS: BP 158/85; O2SAT 100
== END 2018-05-16 13:59 | disposition home or self-care (01) ==
LOC: ER 12:42
DX: R60.0 Localized edema (principal); I48.91 Unspecified atrial fibrillation; I25.9 Chronic ischemic heart disease, unspecified; I10 Essential (primary) hypertension; K21.9 Gastro-esophageal reflux disease without esophagitis; Z79.899 Other long term (current) drug therapy; Z79.82 Long term (current) use of aspirin; Z88.8 Allergy status to other drugs, medicaments and biological substances; Z89.511 Acquired absence of right leg below knee; Z87.891 Personal history of nicotine dependence

== ENCOUNTER → 2018-08-02 | Outpatient (CLI) | payer MEDICARE, OTHER | LOC: GMAH 13:19 | PROVIDERS: ATTEND Family Medicine | DX: I73.9 Peripheral vascular disease, unspecified (principal); I10 Essential (primary) hypertension ==